=== PATIENT | female | born 1995 | race Hispanic/Latino ===

== ENCOUNTER 2021-05-20 06:42 | Emergency (ER) | payer OTHER, SELFPAY ==
[2021-05-20] MEDS ORDERED: Albuterol 200 PUFF (6.7GM INHALER) ONE (07:14)
[2021-05-20] MEDS ORDERED: Lactated Ringer's 1,000 ML ONE (07:51)
[2021-05-20 08:06] LABS: #Basophils 0.2 thou/uL (0.0-0.2); #Eosinphils 0.7 thou/uL (0.0-0.7); #Lymphocytes 3.3 thou/uL (1.20-3.40); #Monocytes 0.6 thou/uL (0.11-0.59); %Basophils 1.4 % (0.0-1.0); %Eosinophils 5.5 % (0.0-10.0); %Lymphocytes 25.9 % (21.0-51.0); %Monocytes 4.9 % (0.0-10.0); %Neutrophils 62.3 % (42.0-75.0); Mean Corpuscular HGB CONC 31.3 g/dL (32.0-36.0); Mean Corpuscular Hemoglobin 27.2 pg (27.0-31.0); Mean Corpuscular Volume 86.8 fL (78.0-98.0); Mean Platelet Volume 9.3 fL (7.4-10.4); Platelet Count 354 thou/uL (130-400); RBC Distribution Width 12.1 % (11.5-14.5); Red Blood Cell (RBC) Count 5.15 mill/uL (4.20-5.40); White Blood Cell (WBC) Count 12.8 thou/uL (4.8-10.8)
[2021-05-20 08:12] LABS: ALT (SGPT) 27 U/L (8-55); AST (SGOT) 19 U/L (5-34); Albumin 4.2 g/dL (3.5-5.0); Alkaline Phosphatase 82 U/L (40-110); Anion Gap 14 mmol/L (10-20); BUN (Urea Nitrogen) 8 mg/dL (7.0-18.7); Bilirubin, Total 0.4 mg/dL (0.2-1.2); Calc. Creatinine Clearance 0 mL/min (70-130); Calcium 9.3 mg/dL (7.8-10.44); Carbon Dioxide 22 mmol/L (22-29); Chloride 106 mmol/L (98-107); Globulin 3.4 g/dL (2.4-3.5); Glucose 119 mg/dL (70-105); Potassium 3.7 mmol/L (3.5-5.1); Protein, Total 7.6 g/dL (6.0-8.3); Sodium 138 mmol/L (136-145)
== END 2021-05-20 08:45 | disposition home or self-care (01) ==
LOC: MADERS 06:42
DX: U07.1 COVID-19 (principal)
CPT/HCPCS: 71046; 80053; 85025; 85379; 93005; 94760; J7120

== ENCOUNTER 2022-12-25 15:39 | Emergency (ER) | payer SELFPAY ==
[2022-12-25] MEDS ORDERED: Boostrix 0.5 ML (Tdap) VIAL (>/=7 yrs of age) ONE (15:54)
[2022-12-25] MEDS ORDERED: Lidocaine 1% w/Epinephrine 1:100K 20 ML VIAL ONE (15:54)
[2022-12-25] MEDS ORDERED: Bacitracin 1 PK ONE (15:54)
[2022-12-25] MEDS ORDERED: Ondansetron ODT 4 MG TAB ONE (15:58)
== END 2022-12-25 16:54 | disposition home or self-care (01) ==
LOC: MADERS 15:39
DX: S51.811A Laceration without foreign body of right forearm, initial encounter (principal); S51.012A Laceration without foreign body of left elbow, initial encounter; S50.812A Abrasion of left forearm, initial encounter; S60.512A Abrasion of left hand, initial encounter; W18.30XA Fall on same level, unspecified, initial encounter
CPT/HCPCS: 12002; 36416; 90471; 90715; Q0162